=== PATIENT | female | born 2000 | race Hispanic/Latino ===

== ENCOUNTER 2025-01-25 12:59 | Emergency (ER) | payer OTHER ==
[~2025-01-25] VITALS: Ht 165.1 cm; Wt 68.0 kg
[~2025-01-25 12:59] MED LIST: AMOXICILLIN500 MG PO; FLUARIX QUADRIV1 INJ IM; FLUZONE SPLT1 M1 IM; HAVRIX720 UNI1 IM; MENACTRA IM; MENACTRA PO; MOTRIN600 MG/TAB PO; VARIVAX SC; ZITHROMAX250 MG PO
[2025-01-25 13:03] VITALS: BP 143/88
[2025-01-25] MEDS ORDERED: lamiVUDine/ZIDOVUDINE 150 MG/300 MG COMBO TAB PO ONE (13:25)
[2025-01-25] MEDS ORDERED: Raltegravir Potassium 400 MG TAB PO ONE (13:25)
[2025-01-25 13:28] LABS: EOS% 0.9 % (0-8); HEMATOCRIT 42.8 % (37.0-47.0); HEMOGLOBIN 13.6 g/dl (12.0-16.0); IMMATURE GRANULOCYTES 0.2 % (0.0-5.0); LYMPH% 44.3 % (15-41); MEAN CELL VOLUME 89.2 fL CALC (80.0-100.0); MEAN CORPUSCULAR HGB 28.3 pG CALC (26.0-32.0); MEAN CORPUSCULAR HGB CONC 31.8 g/dL CAL (32.0-36.0); MONO% 8.5 % (2-13); NEUT# 2.59 thou/uL (2.00-7.15); NEUT% 45.1 % (42-76); RED BLOOD COUNT 4.8 mill/uL (4.20-5.60); RED CELL DISTRI WIDTH 12.3 % (11.5-15.5)
[2025-01-25 13:30] VITALS: BP 100/78
[2025-01-25 13:40] LABS: ALBUMIN 4.7 g/dL (3.2-5.0); ALKALINE PHOSPHATASE 54 u/l (38-126); ANION GAP 13 (6-22 (CALC)); BUN 9 mg/dL (7-17); BUN/CREATININE RATIO 12 (12-20 (CALC)); CARBON DIOXIDE 27 mmol/l (22-30); CHLORIDE 101 mmol/l (95-108); CPK 406 u/l (30-135); CREATININE 0.8 mg/dL (0.5-1.0); ESTIMATED GFR 104 ML/MIN (>=90 (CALC)); POTASSIUM 3.8 mmol/l (3.5-5.1); SGOT/AST 35 u/l (14-36); SODIUM 137 mmol/l (137-146); TOTAL PROTEIN 7.1 g/dL (6.3-8.2)
[2025-01-25 13:56] LABS: HCG SERUM/URINE (NEG/POS) NEGATIVE (NEGATIVE)
[2025-01-25] MEDS ORDERED: LAMIVUDINE/ZIDO1 TAB PO ×2 (13:58→13:59)
[2025-01-25] MEDS ORDERED: ISENTRESS400 MG PO ×2 (13:58→13:59)
[2025-01-25] MEDS ORDERED: ZOFRAN4 MG/TAB PO (13:59)
[2025-01-25 14:00] VITALS: BP 153/112
[2025-01-25 14:00] LABS: URINE BILIRUBIN - DIPSTICK Negative (NEGATIVE); URINE BLOOD DIPSTICK Negative (NEGATIVE); URINE GLUCOSE - DIPSTICK Negative (NEGATIVE); URINE KETONE Negative (NEGATIVE); URINE LEUK ESTERASE Negative (NEGATIVE); URINE NITRITE - DIPSTICK Negative (Negative); URINE PH 6.5 (4.5-8.0); URINE PROTEIN - DIPSTICK Negative (NEG-TRACE); URINE SPECIFIC GRAVITY 1.015; URINE UROBILINOGEN - DIPSTICK 0.2 E.U./dL (0.2)
[2025-01-25 14:01] LABS: URINE COLOR Light yellow
[2025-01-25 14:30] VITALS: BP 153/81
[2025-01-25 14:47] VITALS: BP 153/81
== END 2025-01-25 14:50 | disposition home or self-care (01) | DRG 605 ==
LOC: ED 12:59
PROVIDERS: Nurse Practitioner
DX: S61.432A Puncture wound without foreign body of left hand, initial encounter (principal); W27.2XXA Contact with scissors, initial encounter; Y92.89 Other specified places as the place of occurrence of the external cause; Y99.0 Civilian activity done for income or pay; Z77.21 Contact with and (suspected) exposure to potentially hazardous body fluids